=== PATIENT | female | born 1995 | race African-American/Black ===

== ENCOUNTER 2023-07-29 13:13 | Emergency (ER) | payer OTHER ==
[2023-07-29] MEDS ORDERED: Acetaminophen 500 MG TAB ONE (14:26)
== END 2023-07-29 14:48 | disposition home or self-care (01) ==
LOC: CSHERS 13:13
DX: K08.89 Other specified disorders of teeth and supporting structures (principal); F17.210 Nicotine dependence, cigarettes, uncomplicated; Z55.6 Problems related to health literacy
CPT/HCPCS: 99282

== ENCOUNTER 2023-11-20 02:16 | Day surgery (SDC) | payer OTHER ==
[2023-11-20 02:45] VITALS: BMI 27.9
[2023-11-20] MEDS ORDERED: hydrALAZINE 20 MG/ML VIAL SLOW IVP PRN ×2 (03:13)
[2023-11-20 03:37] LABS: Bilirubin Neg (Negative); Blood, Urine 25 (Negative); Clarity Clear (Clear); Glucose, Urine (Dipstick) Normal (Negative); Ketone, Urine 150 mg/dL (Negative); Leukocyte Negative (Negative); Nitrite Negative (Negative); Protein, Urine (Dipstick) 30 mg/dl (Neg-Trace); pH, Urine 6.5 (5.0-9.0)
[2023-11-20 03:45] LABS: Amphetamine Not Detected (NotDetected); Barbiturates Screen Not Detected (NotDetected); Benzodiazepine Screen Not Detected (NotDetected); Cocaine Metabolite Screen Not Detected (NotDetected); Methadone Not Detected (NotDetected); Methamphetamine Not Detected (NotDetected); Opiate Screen Not Detected (NotDetected); Oxycodone Screen Not Detected (NotDetected); Phencyclidine (PCP) Not Detected (NotDetected); THC/Cannabinoid Screen Not Detected (NotDetected); Tricyclic Screen Not Detected (NotDetected)
[2023-11-20 03:45] LABS: Hematocrit 26.1 % (34.9-44.5); Hemoglobin 8.6 g/dL (12.0-15.5); Mean Corpuscular Hemoglobin 26.4 pg (27.0-33.0); Mean Corpuscular Volume 80.1 fL (81.6-98.3); Mean Platelet Volume 10.1 fL (7.4-10.4); Platelet Count 262 10x3/uL (150-450); RBC Distribution Width 16.2 % (11.5-14.5); Red Blood Cell (RBC) Count 3.26 10x6/uL (3.90-5.03); White Blood Cell (WBC) Count 14.9 10x3/uL (3.5-10.5)
[2023-11-20] MEDS: Acetaminophen 500 MG TAB PO SCH (03:47)
[2023-11-20] MEDS: Lactated Ringer's 1,000 ML IV SCH (03:49)
[2023-11-20 04:00] LABS: Bacteria/HPF Rare-Few HPF (None Seen); Squamous Epithelial 0-3 HPF (0-3); WBC/HPF 0-3 HPF (0-3)
[2023-11-20 04:01] LABS: Mucous/LPF 1+ LPF (<2+)
[2023-11-20 04:17] LABS: HBsAg Index 0.12 S/CO (0-0.99); HIV (1/2) Antibody/Antigen Non-Reactive (NonReactive); HIV 1/2 INDEX 0.06 S/CO (<1.00); Hep B Surf Ag - L&D Non-Reactive S/CO (NonReactive)
[2023-11-20] MEDS ORDERED: Calcium Carbonate 500 MG ChewTAB PO SCH (06:00)
[2023-11-20 12:58] LABS: HBSAB Concentration Less than 8.00 mIU/mL; Hep B Surf AB NONREACTIVE (NonReactive)
== END 2023-11-20 06:20 | disposition home or self-care (01) ==
LOC: CSHLD/OP 02:16
PROVIDERS: ATTEND Obstetrics & Gynecology
DX: O47.1 False labor at or after 37 completed weeks of gestation (principal); O36.8130 Decreased fetal movements, third trimester, not applicable or unspecified; Z3A.38 38 weeks gestation of pregnancy; Z90.89 Acquired absence of other organs
CPT/HCPCS: 59025; 76815; 76819; 80306; 81001; 85027; 86706; 86762; 86850; 86900; 86901; 87340; 87389; 96360; 96361; 99285